=== PATIENT | female | born 1930 | race Caucasian/White ===

== ENCOUNTER 2019-06-08 12:41 | Inpatient (IN) | payer OTHER ==
[~2019-06-08] VITALS: Ht 165.1 cm; Wt 80.3 kg
[~2019-06-08 12:41] MED LIST: CLINDAMYCI600 MG/50 IV; GUAIFENESI100 MG/52 PO; HYDRO PAR25 MG PO; HYDROCHLOROTHIA50 MG PO; LAC PO; LEVAQUIN750 MG/150 IV; LIPI10 PO; LOSARTAN POTAS100 MG PO; POTASSIUM CHLO10 MEQ PO; PROAIR HFA0.09 MG/A1 INH; QVAR0.04 MG/Ac IH; VITAMIN-D1000 IU PO
--- NOTE | 2019-06-08 12:55 | NUR ---
PT BIB SON C/O SOB, PER SON PT HAD A RECENT DX OF AFIB AND "JUST STARTED TAKING METOPROLOL AND ELEQUIS, AND HER DR AND I THINK THAT THE METOPROLOL MIGHT BE WHY SHE'S STARTED TO GET WEAK, BUT HE'S NOT SURE", SON ALSO STS THAT PT ALSO RECENTLY "STARTED HAVING TO USE THE WHEELCHAIR BECAUSE SHE'S BEEN UNSTEADY ON HER FEET", WELL "USING DEPENDS AND PADS BECAUSE SHE'S INCONTINENT", PT AND SON DENY AND RECENT FALLS OR TRAUMA. PT PLACED IN ORTHO FOR EVAL, PLACED ON FULL CM AND 3L O2 VIA NC, SON AT BEDSIDE. LABS DRAWN FROM RAC IV AND RECEIVED BY REHABILITATION TEACHER ZA. PT IN POSITION OF COMFORT, LABORED BREATHING NOTED, PT DENIES PAIN, ONLY C/O AT THIS TIME IS "SHORT OF BREATH".
--- NOTE | 2019-06-08 13:00 | NUR ---
DR SWANSON AT BEDSIDE FOR MSE.
[2019-06-08] MEDS ORDERED: ALENDRONATE SOD70 M3 PO (13:08)
[2019-06-08] MEDS ORDERED: QVAR REDIHALE10.6 G1 IH (13:08)
[2019-06-08 13:27] LABS: BASOPHIL % 0.3 % (0-2); PLATELET COUNT 154 x10^3mcL (130-400)
[2019-06-08 13:29] LABS: RED CELL DISTRIBUTION WIDTH 15.5 % (11.5-14.5)
[2019-06-08 13:38] LABS: CALCIUM 9.4 mg/dL (8.5-10.1); CARBON DIOXIDE 32.4 mmol/L (21-32); CHLORIDE SERUM 101 mmol/L (98-107); GLUCOSE SERUM 125 mg/dL (74-106); POTASSIUM SERUM 3.6 mmol/L (3.5-5.1); SODIUM SERUM 140 mmol/L (136-145)
[2019-06-08 13:43] LABS: ALKALINE PHOSPHATASE 46 U/L (46-116); ALT/SGPT 23 U/L (14-59); AST/SGOT 14 U/L (15-37); BILIRUBIN TOTAL 3.6 mg/dL (0.20-1.00); TOTAL PROTEIN, SERUM 6.7 g/dL (6.4-8.2)
[2019-06-08 13:46] LABS: ALBUMIN 3.1 g/dL (3.4-5.0)
[2019-06-08 13:48] LABS: T3 TOTAL 0.79 ng/mL
[2019-06-08] MEDS ORDERED: METOPROLOL TART25 M1 PO (13:53)
[2019-06-08] MEDS ORDERED: LIPI10 PO (13:53)
[2019-06-08] MEDS ORDERED: POTASSIUM CHLO10 MEQ PO (13:53)
[2019-06-08] MEDS ORDERED: COZAAR100 MG PO (13:53)
[2019-06-08] MEDS ORDERED: ELIQUIS5 MG PO (13:54)
[2019-06-08 14:00] LABS: FREE T4 1.17 ng/dL (0.76-1.46); T4(THYROXINE) 8.4 ug/dL (4.7-13.3)
--- NOTE | 2019-06-08 14:13 | NUR ---
URINE DIP RESULTS REPORTED TO DR SWANSON.
--- NOTE | 2019-06-08 14:23 | NUR ---
PT MEDICATED PER EMAR, NAD NOTED, ON FULL CM.
--- NOTE | 2019-06-08 15:32 | NUR ---
PT ASSISTED ONTO BEDPAN TO VOID, TOLERATED WELL, 200CC OF CLOUDY, ORDOROUS, ALIREZA URINE NOTED. PT CLEANED PLACED IN POSITION OF COMFORT. CALL LIGHT WITHIN REACH.
--- NOTE | 2019-06-08 15:39 | NUR ---
PT MEDICATED PER EMAR, TOLERATED WELL, ON FULL CM, CALL LIGHT WITHIN REACH.
--- NOTE | 2019-06-08 16:42 | NUR ---
ATTEMPTED TO GIVE REPORT TO RADHA, NO ANSWER TO EXT [id number].
--- NOTE | 2019-06-08 16:49 | NUR ---
REPORT GIVEN TO BILLY GARCIA TO ASSUME CARE OF PT.
--- NOTE | 2019-06-08 17:00 | NUR ---
RECEIVED PT FROM ED VIA [facility], CAME IN DUE TO SOB AND WEAKNESS. AAOX2 (PERSON, PLACE AND BIRTHDATE). ABLE TO FOLLOW SIMPLE COMMANDS. SPEECH IS SLOW. NO SOB NOTED, O2 SAT=99% ON 2LPM/NC, LUNG SOUNDS DIMINISHED ON AUSCULTATION. AFIB ON THE MONITOR, HR AT 88. DENIES ABDOMINAL DISCOMFORT. W/ FOUL ODOR URINE NOTED. IV SITE PATENT AND INTACT. RECEIVED PT FROM ED W/ NS ONGOING. SIDE RAILS UPX2. CALL LIGHT ON REACH. HOB ELEVATED AT 30 DEG. BED ALARM ON. PRIMARY NURSE RADHA AT BEDSIDE FOR CONTINUITY OF CARE
[2019-06-08 17:11] VITALS: BP 151/98
[2019-06-08 17:18] VITALS: Ht 165.1 cm; Wt 80.3 kg
--- NOTE | 2019-06-08 17:28 | NUR ---
RESUMED CARE OF THIS PT FROM MARTHA. PT WITH MILD SOB WITH ACTIVITIES, NO ACUTE DISTRESS NOTED. ON O2 2L N/C SATS 99%. NO C/O PAIN OR DISCOMFORT AT THIS TIME. FAMILY AT BEDSIDE. CALL LIGHT WITHIN REACH. WILL CONTINUE WITH PLAN OF CARE.
--- NOTE | 2019-06-08 17:37 | NUR ---
DR. ASHTON IS PAGED FOR ADMIT ORDERS, WAITING FOR CALLBACK.
--- NOTE | 2019-06-08 17:53 | NUR ---
RECEIVED CALLBACK FROM DR. MOORE, RECEIVED TELEPHONE ORDERS ARE WERE CARRIED OUT.
--- NOTE | 2019-06-08 18:33 | NUR ---
NOTED HR SUSTAINED AT 120 -125BPM, PT WITH MILD SOB ON EXCERTION. NO C/O CHEST DISCOMFORT. MEDICATED WITH CARDIAZEM IVP PER ORDER.
--- NOTE | 2019-06-08 19:12 | NUR ---
PT REMAINS IN NO DISTRESS, AWAKE AND ALERT. HR NOW 70-80BPM. NO C/O CHEST DISCOMFORT. CALL LIGHT WITHIN REACH. WILL BE ENDORSED TO INCOMING SHIFT.
--- NOTE | 2019-06-08 19:45 | NUR ---
PT IS A/O X3, SLOW SPEECH. PT IS TELE #1 AFIB HR 95. PT DENIES ANY CHEST PAIN OR SOB AT THIS TIME. PT PULSES PALPABLE, NO EDEMA NOTED. PT IS ON 2L NC, DIMISHED LUNG SOUNDS BILATERALLY. NO RESP DISTRESS NOTED. LAST BM 8, ABD SOFT AND DISTENDED. PT IS INCONTIENT. PT HAS GENERAL WEAKNESS. IV TO RAC INFUSING WELL, CDI. NO REDNESS NOTED. WILL CONT TO MONITOR. CALL LIGHT WITHIN REACH.
[2019-06-08 20:17] VITALS: BP 139/86
[2019-06-08 21:03] VITALS: BP 151/98
--- NOTE | 2019-06-08 21:30 | NUR ---
PT BP WAS 139/86, HR 97. PT WAS GIVEN SCHEDULED LOPRESSOR. PT EXPLAINED REASON FOR MEDICATION, SIDE EFFECTS AND RISK. PT UNDERSTOOD AND AGREED TO MEDICATION.
[2019-06-09 05:04] VITALS: BP 145/92
--- NOTE | 2019-06-09 05:56 | NUR ---
PT SLEPT ON AND OFF THROUGH OUT THE NIGHT. PT WAS ABLE TO FOLLOW VERBAL COMMANDS. PT ON TELE #1 A FIB HR RANGING IN 100'S. PT DENIES ANY CHEST PAIN OR SOB AT THIS TIME. BREATHING EVEN AND UNLABORED. PT REMAINS ON O2 2L NC. NO RESP DISTRESS NOTED. PT VOIDED ON BED [place] THROUGH OUT THE NIGHT. NO ACUTE CHANGES DURING THE NIGHT. PT IV TO RAC CDI. WILL CONT TO MONITOR. CALL LIGHT WITHING REACH, BED IN LOWEST POSITION. WILL ENDORSE CARE TO DAY SHIFT NURSE.
[2019-06-09 07:15] VITALS: BP 132/93
--- NOTE | 2019-06-09 07:22 | NUR ---
RECEIVED AWAKE AND ALERT. FOLLOWS COMMANDS. NO C/O PAIN OR DISCOMFORT. VS WNL. AFIB ON THE TELE WITH HR 92 BPM. NO SOB NOTED,HL PATENT. CALL LIGHT WITHIN REACH. WILL CONTINUE WITH PLAN OF CARE.
--- NOTE | 2019-06-09 08:15 | NUR ---
DR. MOORE IN TO SEE PT, UPDATED ON PT'S CONDITION, PLAN TO CONSULT TANKERMAN THIS AM. PLAN OF CARE DISCUSED WITH PT AND PT VERBALIZED UNDERSTANDING.
[2019-06-09 11:30] VITALS: BP 135/84
--- NOTE | 2019-06-09 12:44 | NUR ---
PT HAS A RUN OF VTACHAPPROX. 4 SEC.13 BEATS. PT SITTING UP IN BED EATING LUNCH. APPEARS ASYMPTOMATIC. DENIES CHEST DISCOMFORT , DR. CAMPOS NOTIFIED. SEE ORDERS. WILL CONTINUE TO MONITOR.
--- NOTE | 2019-06-09 12:55 | NUR ---
METOPROLOL PM DOSE GIVEN EARLY PER DR. FIORDALIZA FALCON. PT IN NO DISTRESS, DENIES PAIN OR DISCOMFORT. VS STABLE 135/84 HR 93.
[2019-06-09 16:05] VITALS: BP 129/77
--- NOTE | 2019-06-09 18:15 | NUR ---
REMAINS IN NO DISTRESS, AWAKE AND ALERT BUT FORGETFUL. NO C/O PAIN OR DISCOMFORT AT THIS TIME. NO CHANGES IN VS. HL PATENT. CALL LIGHT WITHIN REACH. WILL BE ENDORSED TO INCOMING SHIFT.
--- NOTE | 2019-06-09 18:51 | NUR ---
PT'S SON AT [facility] , UPDATED ON PT'S CONDITION. STATED HE DOES NOT WANT HIS MOTHER TO RECEIVE METOPROLOL UNTIL HE TALK TO THE INSIDE SALES RECRUITER. HE STATED HE DID HIS RESEARCH ON [facility]" AND A PHARMACIS FROM [facility]" RECOMMENDED TO STOP TAKING METOPROLOL BECAUSE IT MAKES HER WEAK. WILL ENDORSE TO NOC SHIFT NURSE TO PASS IT TO THE DOCTOR.PT RESTING IN BED. NO DISTRESS NOTED. CALL LIGHT WITHIN REACH.
--- NOTE | 2019-06-09 19:58 | NUR ---
PT CURRENTLY RESTING IN BED, NO ACUTE DISTRESS. A/O X3, FORGETFUL AT TIMES. TELE #1 SHOWING AFIB, DENIES CHEST PAIN. PULSES PALPABLE IN ALL EXTREMITIES, NO EDEMA NOTED. LUNG SOUNDS DIMINISHED BILATERALLY, DENIES SOB, RECEIVING O2 VIA NC AT 2L. BOWEL SOUNDS ACTIVE, LAST BM 06/08/19. INCONTINENT AT TIMES. GENERALIZED WEAKNESS. SKIN INTACT. IV PATENT AND INTACT. BED IN LOWEST POSITION, SIDE RAILS UP X2, CALL LIGHT WITHIN REACH. WILL CONTINUE TO MONITOR.
[2019-06-09 21:07] VITALS: BP 125/75
[2019-06-10 00:17] LABS: UA SPECIFIC GRAVITY 1.015 (1.005-1.035); microscopic required? YES; urine erythrocyte 3+ (NEGATIVE)
--- NOTE | 2019-06-10 00:19 | NUR ---
PT CURRENTLY RESTING IN BED, NO ACUTE DISTRESS. URINARY INCONTINENCE NOTED, CLEANED WITH CADY COHEN. WILL CONTINUE TO MONITOR.
[2019-06-10 04:51] VITALS: BP 151/80
[2019-06-10 06:13] LABS: BASOPHIL % 0.3 % (0-2); PLATELET COUNT 150 x10^3mcL (130-400)
--- NOTE | 2019-06-10 06:16 | NUR ---
PT SLEPT PERIODICALLY THROUGHOUT NIGHT, NO ACUTE DISTRESS. ALL NEEDS MET AND ATTENDED TO. NO SIGNIFICANT CHANGES. IV PATENT AND INTACT. BED IN LOWEST POSITION, SIDE RAILS UP X,2 CALL LIGHT WITHIN REACH. WILL ENDORSE CARE TO ONCOMING NURSE.
[2019-06-10 06:38] LABS: RED CELL DISTRIBUTION WIDTH 15.1 % (11.5-14.5)
[2019-06-10 06:41] LABS: CALCIUM 8.7 mg/dL (8.5-10.1); CARBON DIOXIDE 35.3 mmol/L (21-32); CHLORIDE SERUM 104 mmol/L (98-107); CREATININE SERUM 0.9 mg/dL (0.6-1.0); GLUCOSE SERUM 90 mg/dL (74-106); POTASSIUM SERUM 3.6 mmol/L (3.5-5.1); SODIUM SERUM 142 mmol/L (136-145)
--- NOTE | 2019-06-10 07:10 | NUR ---
RECEIVED PT FROM SHIFT NURSE A/OX2 RESTING IN BED. RESP EVEN AND UNLABORED ON 2L NC. IV INTACT AND PATENT. FALL PRECAUTIONS IN PLACE. BED IN LOW POSITION. CALL LIGHT WITHIN REACH. WILL CONTINUE TO MONITOR.
[2019-06-10 08:51] VITALS: BP 127/57
--- NOTE | 2019-06-10 10:38 | NUR ---
PT ASLEEP BUT AROUSABLE. NO ACUTE DISTRESS NOTED. FAMILY MEMBER AT BEDSIDE. WILL CONTINUE TO MONITIOR.
[2019-06-10 11:45] VITALS: BP 141/75
--- NOTE | 2019-06-10 12:00 | NUR ---
PT AMBULATIING AROUND HALLWAY WITH PHYSICAL THERAPIST.
--- NOTE | 2019-06-10 13:45 | NUR ---
PT RESTING IN BED. SON AT BEDSIDE. CALL LIGHT WITHIN REACH. WILL CONTINUE TO MONITOR.
--- NOTE | 2019-06-10 15:28 | NUR ---
PT ASLEEP BUT AROUSABLE. NO ACUTE DISTRESS NOTED. CALL LIGHT WITHIN REACH. WILL CONTINUE TO MONITOR.
[2019-06-10 16:46] VITALS: BP 147/74
--- NOTE | 2019-06-10 18:15 | NUR ---
PT SITTING UP IN BED EATING DINNER. NO ACUTE DISTRESS NOTED. IV INTACT AND PATENT. FALL PRECAUTIONS IN PLACE. BED IN LOW POSITION. CALL LIGHT WITHIN REACH. WILL BE ENDORSED.
--- NOTE | 2019-06-10 19:30 | NUR ---
RECIEVED PT FROM DAY NURSE. PT RESTING IN BED COMFORTABLY. A/O X3, FORGETFUL OF YEAR AND SLOW TO RESPOND. REORIENTED. DENIES PAIN AT THIS TIME. BREATHING E/U ON 2L NC. SPO2 98%. DENIES SOB. ABD SOFT AND ROUND. DENIES PAIN TO PALPATION. IV TO RAC, INTACTED AND FLUSHES. BED AT LOWEST POSITION. CALL LIGHT WITHIN REACH. WILL CONTINUE TO MONITOR.
[2019-06-10 20:13] VITALS: BP 141/75
--- NOTE | 2019-06-10 21:15 | NUR ---
PT SON AT BEDSIDE. STATES PT DOES NOT WANT TO TAKE SCHEDULED AMIODERONE. DID NOT GIVE SCHEDULED MED AT THIS TIME.
--- NOTE | 2019-06-11 00:21 | NUR ---
PT RESTING IN BED COMFORTABLY. BREATHING E/U ON 2L NC. TELE 1, AFIB. NO SIGNS OF ACUTE DISTRESS AT THIS TIME. BED AT LOWEST POSITION, CALL LIGHT WITHIN REACH. WILL CONTINUE TO MONITOR.
[2019-06-11 05:55] VITALS: BP 141/83
--- NOTE | 2019-06-11 06:18 | NUR ---
PT RESTING IN BED COMFORTABLY. NO S/S OF PAIN AT THIS TIME. BREATHING E/U ON 2L NC. SPO2 97%. DENIES SOB. VSS. NO SIGNS OF ACUTE DISTRESS AT THIS TIME. BED AT LOWEST POSITION. CALL LIGHT WITHIN REACH. WILL CONTINUE TO MONITOR.
--- NOTE | 2019-06-11 07:40 | NUR ---
RC'D PT RESTING IN BED WITH NO APPARENT SIGNS OF DISTRESS. A/A/O/X3, SPEECH CLEAR AND APPRPRIATE, SLOW SPEECH NOTED. ON TELE, DENIES CHEST PAIN/PRESSURE. PALP PULSES, NO EDEMA NOTED. RESPIRATIONS EQUAL AND UNLABORED. LUNGS DIM IN BASES. ON 2L O2 VIA NC, DENIES SOB. ABDOMEN SOFT AND NONTNEDER. ACTIVE BS. DENIES N/V. PT INCONTINENT AT TIMES. GENERALIZED WEAKNESS. AMB WITH FWW AND ASSIST. SKIN W/D/I. PT DENIES PAIN AT THIS TIME. IV PATENT AND INTACT. BED IN LOW PSOITION. CALL LIGHT IN REACH. WILL CONT TO MONITOR
[2019-06-11 08:18] VITALS: BP 161/92
--- NOTE | 2019-06-11 08:47 | NUR ---
AM MEDICATIONS GIVEN. PT TOLERATED WELL. RESPIRATIONS EQUAL AND UNLABORED. ON 2L O2 VIA NC, DENIES SOB. NO RESP DISTRESS NOTED. PT DENIES PAIN AT THIS TIME. BED IN LOW POSITION. CALL LIGHT IN REACH. WILL CONTINUE TO MONITOR
[2019-06-11 10:08] VITALS: BP 162/92
[2019-06-11 12:15] VITALS: BP 141/84
--- NOTE | 2019-06-11 13:00 | NUR ---
RECEIVED PT FROM GALINA CERVANTES. PT IS A/O X3, EATTING LUNCH AT THIS MOMENT, DENY ANY RESPIRATORY DISTRESSED, DENY ANY PAIN OR DISCOMFORT, IV AT LEFT FA, NO LEAKING, NO INFILTRATION, ALL ADLS ASSIST, ALL NEED MET, CALL LIGHT IN REACH, WILL CONTINUE TO MONITOR.
--- NOTE | 2019-06-11 14:34 | NUR ---
PHYSICAL THERAPY DAILY NOTES CO-SIGN All documentation done by the Rn Internal Medicine for 06/11/19 has been reviewed. I agree with the documentation. Reviewed/Co-Signed by: Ines Ware PT Documentation Done by: AYAD MARSHALL PTA
[2019-06-11] MEDS ORDERED: DIG125 PO (16:16)
[2019-06-11 16:28] VITALS: BP 141/84
[2019-06-11 16:54] VITALS: BP 141/87
--- NOTE | 2019-06-11 17:50 | NUR ---
CALL[id number] TO GIVE REPORT TO MAGDY CERVANTES.
--- NOTE | 2019-06-11 18:05 | NUR ---
PT IS A/O VERBAL RESPONSIVE, DENY ANY RESPIRATORY DISTRESS, DENY ANY PAIN OR DISCOMFORT,IV AT LEFT FA, NO LEAKING, NO INFILTRATION. ALL ADLS ASSIST, ALL NEED MET, CALL LIGHT IN REACH, WILL CONTINUE TO MONITOR.
--- NOTE | 2019-06-11 19:33 | NUR ---
[facility] [place].PATIENT READY TO GO.REPORT ALREADY GIVEN BY ANASTASIIA.SAYS HE WILL DC PATIENT WHEN TRANSPORT ARRIVE.
--- NOTE | 2019-06-11 19:50 | NUR ---
GIVE REPORT TO EMT. ALL DOCUMENT GAVE TO GLASSWARE SELECTOR. REMOVED IV FROM LEFT FA.
== END 2019-06-11 19:58 | DRG 309 ==
LOC: ED 12:41 → DU 16:20 → EDBEDREQ 16:20 → DU 16:20 → MU 06-11 15:52
PROVIDERS: Emergency Medicine; ADMIT Internal Medicine Pulmonary Disease
DX: I48.2 Chronic atrial fibrillation (principal); E44.1 Mild protein-calorie malnutrition; I47.2 Ventricular tachycardia; J47.9 Bronchiectasis, uncomplicated; J45.909 Unspecified asthma, uncomplicated; R91.8 Other nonspecific abnormal finding of lung field; R54 Age-related physical debility; I10 Essential (primary) hypertension; E78.5 Hyperlipidemia, unspecified; Z68.30 Body mass index [BMI] 30.0-30.9, adult; Z91.14 Patient's other noncompliance with medication regimen; Z66 Do not resuscitate; Z53.29 Procedure and treatment not carried out because of patient's decision for other reasons
CPT/HCPCS: 83880; 84439; 94150; 97116-GP; 97530-GP; G0378; J0696; J1160; J3490; J7030; J7040; J7060; J7620; Q0092